=== PATIENT | female | born 1970 | race Caucasian/White ===

== ENCOUNTER 2016-06-16 11:28 | Emergency (ER) | payer MEDICAID ==
--- NOTE | 2016-06-16 12:15 | ERPHSYRPT ---
- History of Present Illness Time Seen by Provider: 06/16/16 12:08 Source: patient, family (brother) Patient Subjective Stated Complaint: pt states her shoe parts caser instructed her to come to ER for [facility] Evaluation. pt states she is hearing voices to kill people. Denies wanting to hurt herself. Pt states she hears these voices a few days before her invega injection is due. Triage Nursing Assessment: pt pink, warm, dry. alert and oriented x3. arrived to ER with her Brother. Physician History: CC: hearing voices hx: 46 y/o patient with schizophrenia. She sees Dr Estrada at . She is on long acting invega shots. Due for shot next week. She has been hearing more voices and now voices are telling her to kill someone. She has no act of self harm. shoe parts caser told the brother to bring her to ER for evaluation. Accidentally took an extra dose of ambien at 4AM. Severity of Symptoms-Max: moderate Severity of Symptoms-Current: moderate Allergies/Adverse Reactions: Penicillins Allergy (Mild, Verified 06/16/16 12:10) Hives Home Medications: Albuterol 2.5 mg/3 ml Neb [Proventil 2.5 mg/3 ml Neb] 2.5 mg IH QIDPRN PRN 04/23/12 [History] Albuterol Sulfate [Proair Hfa] 8.5 gm IH DAILY 04/23/12 [History] Fluticasone/Salmeterol [Advair 250-50 Diskus] 1 each IH DAILY 04/23/12 [History] Ibuprofen 400 mg [Motrin 400 mg] 600 mg PO TIDPRN 04/23/12 [History] Montelukast Sodium 10 mg [Singulair 10 MG] 10 mg PO HS 04/23/12 [History] Topiramate 100 mg [Topamax 100 MG] 200 mg PO BID 04/23/12 [History] Atorvastatin Calcium [Lipitor 20MG Tablet] 20 mg PO HS 06/16/16 [History] Benztropine Mesylate [Cogentin] 1 mg PO DAILY 06/16/16 [History] Benztropine Mesylate [Cogentin] 2 mg PO HS 06/16/16 [History] Buspirone HCl [Buspar] 10 mg PO BID 06/16/16 [History] Losartan Potassium 25 mg PO DAILY 06/16/16 [History] Metformin HCl [Metformin HCl ER] 1,000 mg PO DAILY 06/16/16 [History] Paliperidone Palmitate [Invega Sustenna] 156 mg IM UD 06/16/16 [History] Trazodone HCl [Desyrel] 150 mg PO HS 06/16/16 [History] Hx Tetanus, Diphtheria Vaccination/Date Given: Yes (up to date) Hx Influenza Vaccination/Date Given: Yes Hx Pneumococcal Vaccination/Date Given: Yes Immunizations Up to Date: Yes - Past Medical History Pertinent Past Medical History: Yes Neurological History: Seizures ENT History: No Pertinent History Cardiac History: High Cholesterol, Hypertension Respiratory History: Asthma Endocrine Medical History: Diabetes Type II Musculoskeletal History: Other GI Medical History: Gallbladder Disease History: No Pertinent History Psycho-Social History: Anxiety, Attention Deficit Disorder, Bipolar, Depression , Panic Disorder Female Reproductive Disorders: No Pertinent History Other Medical History: TYPE II NIDDM, L CTS W/ SURGERY - Past Surgical History Past Surgical History: Yes Neuro Surgical History: No Pertinent History Cardiac: No Pertinent History Respiratory: No Pertinent History Gastrointestinal: Cholecystectomy Genitourinary: No Pertinent History Musculoskeletal: Orthopedic Surgery Female Surgical History: No Pertinent History Other Surgical History: lap ivonne 2005,benign bone lesion right leg removed - Social History Smoking Status: Never smoker Exposure to second hand smoke: No Drug Use: none Patient Lives Alone: No - Review of Systems Constitutional: No Fever, No Chills Eyes: No Vision Changes Ears, Nose, & Throat: No Symptoms Respiratory: No Symptoms Cardiac: No Symptoms Abdominal/Gastrointestinal: No Abdominal Pain, No Nausea, No Vomiting Genitourinary Symptoms: No Symptoms Musculoskeletal: No Back Pain, No Neck Pain Psychological: Homicidal Ideations, Emotional Lability, Hallucinations All Other Systems: Reviewed and Negative - Nursing Vital Signs Nursing Vital Signs: Initial Vital Signs Temperature 97.4 F Temperature Source Oral Pulse Rate 74 Respiratory Rate 18 Blood Pressure [Right Arm] 135/84 Pain Intensity 0 - Physical Exam General Appearance: alert, obese Eyes, Ears, Nose, Throat Exam: moist mucous membranes Neck Exam: normal inspection, non-tender, supple Respiratory Exam: normal breath sounds, lungs clear Cardiovascular Exam: regular rate/rhythm, No murmur Gastrointestinal/Abdominal Exam: soft, No tenderness, No distention Neurological Exam: alert, calm Behavior/Eye Contact/Speech: alert & cooperative Skin Exam: warm, dry, No rash - Course Nursing assessment & vital signs reviewed: Yes Ordered Tests: Active Orders 24 hr Category Date Time Status Clean Catch Urine Specimen STAT Care 06/16/16 12:11 Active Psychiatric Evaluation STAT Care 06/16/16 12:11 Active CBC W DIFF Stat Lab 06/16/16 12:21 Completed CMP Stat Lab 06/16/16 12:21 Completed Ethyl Alcohol,Urine Stat Lab 06/16/16 12:10 Completed HCG,QUALITATIVE URINE Stat Lab 06/16/16 12:10 Completed UA W/ MICROSCOPIC Stat Lab 06/16/16 12:11 Completed Urine Triage Profile Stat Lab 06/16/16 12:10 Completed Medication Summary Discontinued Medications Generic Name Dose Route Start Last Admin Trade Name Mike PRN Reason Stop Dose Admin Lorazepam 1 mg 06/16/16 15:19 06/16/16 15:25 Ativan 2 Mg/1 Ml Vial SL 06/16/16 15:20 1 mg STAT ONE Administration Lorazepam Confirm 06/16/16 15:24 Ativan 2 Mg/1 Ml Vial Administered 06/16/16 15:25 Dose 2 mg .ROUTE .STK-MED ONE Lab/Rad Data: Laboratory Result Diagrams 06/16/16 12:21 06/16/16 12:21 Laboratory Results 06/16/16 06/16/16 06/16/16 Range/Units 12:21 12:21 12:11 WBC 8.0 (4.0-10.5) K/mm3 RBC 4.52 (4.1-5.4) M/mm3 Hgb 13.8 (12.0-16.0) gm/dl Hct 41.0 (35-47) % MCV 90.7 (78-100) fl MCH 30.5 (26-32) pg MCHC 33.7 (32-36) g/dl RDW 12.8 (11.5-14.0) % Plt Count 164 (150-450) K/mm3 MPV 10.1 H (6-9.5) fl Gran % 70.4 H (36.0-66.0) % Lymphocytes % 15.5 L (24.0-44.0) % Monocytes % 11.6 (0.0-12.0) % Eosinophils % 2.1 (0.00-5.0) % Basophils % 0.4 (0.0-0.4) % Basophils # 0.03 (0-0.4) Sodium 140 (136-145) mEq/L Potassium 3.9 (3.5-5.1) mEq/L Chloride 107 (98-107) mEq/L Carbon Dioxide 23.9 (21-32) mEq/L Anion Gap 13.4 (5-15) MEQ/L BUN 17 (9-20) mg/dL Creatinine 1.03 (0.55-1.30) mg/dl Estimated GFR > 60 ML/MIN Glucose 79 (70-110) MG/DL Calcium 8.9 (8.5-10.1) mg/dL Total Bilirubin 0.2 (0.2-1.0) mg/dL AST 18 (15-37) U/L ALT 22 (12-78) U/L Alkaline Phosphatase 95 (46-116) U/L Serum Total Protein 7.4 (6.4-8.2) gm/dL Albumin 3.7 (3.4-5.0) g/dL Ur Collection Type VOID Urine Color YELLOW (YELLOW) Urine Appearance CLEAR (CLEAR) Ur Specific Pierre 1.010 (1.005-1.025) Urine Protein NEGATIVE (Negative) Urine Glucose (UA) NEGATIVE (NEGATIVE) mg/dL Urine Ketones NEGATIVE (NEGATIVE) Urine Nitrite NEGATIVE (NEGATIVE) Urine Bilirubin NEGATIVE (NEGATIVE) Urine Urobilinogen 0.2 (0-1) mg/dL Urine WBC (Auto) TRACE (NEGATIVE) Urine RBC (Auto) NEGATIVE (0-5) Wild/ul Urine Microscopic WBC 0-2 (0-5) /HPF Urine Bacteria RARE (NEGATIVE) /HPF Urine HCG, Qual (Negative) Urine Opiates Level (NEGATIVE) Ur Methadone (NEGATIVE) Urine Barbiturates (NEGATIVE) Ur Phencyclidine (PCP) (NEGATIVE) Urine Amphetamine (NEGATIVE) U Benzodiazepine Level (NEGATIVE) Urine Cocaine (NEGATIVE) Urine Marijuana (THC) (NEGATIVE) Urine pH 7.0 (3-8.5) Urine Ethyl Alcohol (0.00-20) mg/dl Specimen Received 06/16/16 1210 06/16/16 06/16/16 06/16/16 Range/Units 12:10 12:10 12:10 WBC (4.0-10.5) K/mm3 RBC (4.1-5.4) M/mm3 Hgb (12.0-16.0) gm/dl Hct (35-47) % MCV (78-100) fl MCH (26-32) pg MCHC (32-36) g/dl RDW (11.5-14.0) % Plt Count (150-450) K/mm3 MPV (6-9.5) fl Gran % (36.0-66.0) % Lymphocytes % (24.0-44.0) % Monocytes % (0.0-12.0) % Eosinophils % (0.00-5.0) % Basophils % (0.0-0.4) % Basophils # (0-0.4) Sodium (136-145) mEq/L Potassium (3.5-5.1) mEq/L Chloride (98-107) mEq/L Carbon Dioxide (21-32) mEq/L Anion Gap (5-15) MEQ/L BUN (9-20) mg/dL Creatinine (0.55-1.30) mg/dl Estimated GFR ML/MIN Glucose (70-110) MG/DL Calcium (8.5-10.1) mg/dL Total Bilirubin (0.2-1.0) mg/dL AST (15-37) U/L ALT (12-78) U/L Alkaline Phosphatase (46-116) U/L Serum Total Protein (6.4-8.2) gm/dL Albumin (3.4-5.0) g/dL Ur Collection Type Urine Color (YELLOW) Urine Appearance (CLEAR) Ur Specific Pierre (1.005-1.025) Urine Protein (Negative) Urine Glucose (UA) (NEGATIVE) mg/dL Urine Ketones (NEGATIVE) Urine Nitrite (NEGATIVE) Urine Bilirubin (NEGATIVE) Urine Urobilinogen (0-1) mg/dL Urine WBC (Auto) (NEGATIVE) Urine RBC (Auto) (0-5) Wild/ul Urine Microscopic WBC (0-5) /HPF Urine Bacteria (NEGATIVE) /HPF Urine HCG, Qual NEGATIVE (Negative) Urine Opiates Level NEG. (NEGATIVE) Ur Methadone NEG. (NEGATIVE) Urine Barbiturates NEG. (NEGATIVE) Ur Phencyclidine (PCP) NEG. (NEGATIVE) Urine Amphetamine NEG. (NEGATIVE) U Benzodiazepine Level NEG. (NEGATIVE) Urine Cocaine NEG. (NEGATIVE) Urine Marijuana (THC) NEG. (NEGATIVE) Urine pH 7.0 (3-8.5) Urine Ethyl Alcohol 1 (0.00-20) mg/dl Specimen Received - Progress Progress Note: 06/16/16 12:14 Will obtain telemental health consult. 06/16/16 15:28 [facility] evaluation. Safe to return home with brother's supervision, he is to control medications, and follow up next week. Counseled pt/family regarding: lab results, diagnosis, need for follow-up - Departure Time of Disposition: 15:28 Departure Disposition: Home Clinical Impression: Psychosis Qualifiers: Psychosis type: schizoaffective disorder Schizoaffective disorder type: unspecified Qualified Code(s): F25.9 - Schizoaffective disorder, unspecified Condition: Stable Critical Care Time: No Referrals: SANDHYA CRANDALL [Primary Care Provider] - [facility] [Provider Group] Instructions: Schizophrenia Additional Instructions: OK to return home with brother. Brother needs to lock up medications and dispense them as prescribed. Call [facility] or return for problems or concerns.
[2016-06-16 12:23] LABS: BASOPHIL % 0.4 % (0.0-0.4); Eosinophil % 2.1 % (0.00-5.0); Granulocytes % 70.4 % (36.0-66.0); Lymphocytes % 15.5 % (24.0-44.0); Mean Cell Volume 90.7 fl (78-100); Mean Corpuscular Hemoglobin 30.5 pg (26-32); Mean Platelet Volume 10.1 fl (6-9.5); Monocytes % 11.6 % (0.0-12.0); Platelet Count 164 K/mm3 (150-450); Red Blood Count 4.52 M/mm3 (4.1-5.4); Red Cell Distribution Width 12.8 % (11.5-14.0)
[2016-06-16 12:23] LABS: COMPLETE URINE MICROSCOPIC? YES; Collection Type VOID
[2016-06-16 12:29] LABS: Bacteria RARE /HPF (NEGATIVE); WBC 0-2 /HPF (0-5)
[2016-06-16 12:42] LABS: ALBUMIN 3.7 g/dL (3.4-5.0); ALKALINE PHOSPHATASE 95 U/L (46-116); ANION GAP 13.4 MEQ/L (5-15); BILIRUBIN,TOTAL 0.2 mg/dL (0.2-1.0); BLOOD UREA NITROGEN 17 mg/dL (9-20); CHLORIDE 107 mEq/L (98-107); Carbon Dioxide 23.9 mEq/L (21-32); Glucose 79 MG/DL (70-110); Potassium 3.9 mEq/L (3.5-5.1); SGOT/AST 18 U/L (15-37); SGPT/ALT 22 U/L (12-78); SODIUM 140 mEq/L (136-145); Total Protein 7.4 gm/dL (6.4-8.2)
[2016-06-16] MEDS ORDERED: Ativan 2 MG/1 ML VIAL SL ONE (15:19)
[2016-06-16] MEDS ORDERED: Ativan 2 MG/1 ML VIAL ONE (15:24)
[2016-06-16 15:37] VITALS: BP 136/84; PULSE 76
== END 2016-06-16 15:35 | disposition home or self-care (01) ==
LOC: ED 11:28
DX: F25.9 Schizoaffective disorder, unspecified (principal); I10 Essential (primary) hypertension; E11.9 Type 2 diabetes mellitus without complications; E78.00 Pure hypercholesterolemia, unspecified; Z79.899 Other long term (current) drug therapy
CPT/HCPCS: 36415; 80053; 80307; 80320; 81000; 83986; 84703; 85025; 90791; 99283; 99285; J2060; Q3014

== ENCOUNTER 2021-04-21 20:04 | Emergency (ER) | payer MEDICAID ==
--- NOTE | 2021-04-21 20:09 | ERPHSYRPT ---
- History of Present Illness Time Seen by Provider: 04/21/21 20:09 Source: patient, EMS Exam Limitations: no limitations Physician History: This is an obese 50-year-old white female who has a history of anxiety, schizophrenia, bipolar disorder who presents via ambulance to the emergency department with delusional thoughts and auditory hallucinations. Patient denies being suicidal or homicidal. She does states she is taking her medications. Patient was seen at [facility] earlier in the day. They called the emergency department and told us that she has been given an emergency fci and has a bed reserved for her at [facility]. We were told by [facility] that she is to come here and be cleared medically. Patient has history of COPD, diabetes, hypertension. Patient has no medical complaints. Timing/Duration: today Severity of Symptoms-Max: moderate Severity of Symptoms-Current: moderate Suicidal thoughts: other (None) Associated Symptoms: hallucinating (Auditory), other (Delusional thoughts) Previous symptoms: same symptoms as today Allergies/Adverse Reactions: Penicillins Allergy (Mild, Verified 04/21/21 20:30) Hives Home Medications: Albuterol 2.5 mg/3 ml Neb [Proventil 2.5 mg/3 ml Neb] 2.5 mg IH QIDPRN PRN 04/23/12 [History] Albuterol Sulfate [Proair Hfa] 8.5 gm IH Q4-6HPRN PRN 04/23/12 [History] Montelukast Sodium 10 mg [Singulair 10 MG] 10 mg PO HS 04/23/12 [History] Atorvastatin Calcium [Lipitor 20MG Tablet] 40 mg PO HS 06/16/16 [History] Benztropine Mesylate [Cogentin] 1 mg PO BID 06/16/16 [History] Losartan Potassium 12.5 mg PO DAILY 06/16/16 [History] Trazodone HCl [Desyrel] 100 mg PO HS 06/16/16 [History] Cetirizine HCl [All Day Allergy Relief] 10 mg PO DAILY 04/21/21 [History] Fluoxetine HCl 20 mg [Prozac 20 MG] 20 mg PO DAILY 04/21/21 [History] Lacosamide [Vimpat] 200 mg PO BID 04/21/21 [History] Lorazepam 1 mg [Ativan 1 MG] 0.5 mg PO DAILY 04/21/21 [History] Lorazepam 1 mg [Ativan 1 MG] 1 mg PO HS 04/21/21 [History] Paliperidone Palmitate [Invega Sustenna] 234 mg IM UD 04/21/21 [History] Propranolol HCl 20 mg PO BID 04/21/21 [History] Trazodone HCl 300 mg PO HS 04/21/21 [History] haloperidoL [Haloperidol] 2 mg PO BID 04/21/21 [History] Hx Tetanus, Diphtheria Vaccination/Date Given: Yes (up to date) Hx Influenza Vaccination/Date Given: Yes Hx Pneumococcal Vaccination/Date Given: Yes Travel Risk - International Travel Have you traveled outside of the country in past 3 weeks: No - Coronavirus Screening Are you exhibiting any of the following symptoms?: No Close contact with a COVID-19 positive Pt in past 14-21 Days: No - Past Medical History Pertinent Past Medical History: Yes Neurological History: Seizures ENT History: No Pertinent History Cardiac History: High Cholesterol, Hypertension Respiratory History: Asthma Endocrine Medical History: Diabetes Type II Musculoskeletal History: Other GI Medical History: Gallbladder Disease History: No Pertinent History Psycho-Social History: Anxiety, Attention Deficit Disorder, Bipolar, Depression, Panic Disorder Female Reproductive Disorders: No Pertinent History Other Medical History: TYPE II NIDDM, L CTS W/ SURGERY - Past Surgical History Past Surgical History: Yes Neuro Surgical History: No Pertinent History Cardiac: No Pertinent History Respiratory: No Pertinent History Gastrointestinal: Cholecystectomy Genitourinary: No Pertinent History Musculoskeletal: Orthopedic Surgery Female Surgical History: No Pertinent History Other Surgical History: lap ivonne 2005,benign bone lesion right leg removed - Social History Smoking Status: Never smoker Exposure to second hand smoke: No Drug Use: none Patient Lives Alone: No - Review of Systems Constitutional: No Symptoms Eyes: No Symptoms Ears, Nose, & Throat: No Symptoms Respiratory: No Symptoms Cardiac: No Symptoms Abdominal/Gastrointestinal: No Symptoms Genitourinary Symptoms: No Symptoms Musculoskeletal: No Symptoms Skin: Other (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 Patient states that he hears voices telling her what to do like change the channel on the TV and go to places) Endocrine: No Symptoms Hematologic/Lymphatic: No Symptoms Immunological/Allergic: Pollen Allergy All Other Systems: Reviewed and Negative - Nursing Vital Signs Nursing Vital Signs: Initial Vital Signs Temperature 97.2 F 04/21/21 20:05 Pulse Rate 85 04/21/21 20:05 Respiratory Rate 18 04/21/21 20:05 Blood Pressure 107/89 04/21/21 20:05 O2 Sat by Pulse Oximetry 95 04/21/21 20:05 Pain Scale Pain Intensity 0 - Physical Exam General Appearance: no apparent distress, alert, anxiety, obese Eyes, Ears, Nose, Throat Exam: normal ENT inspection, moist mucous membranes Neck Exam: normal inspection, non-tender, supple, full range of motion Respiratory Exam: normal breath sounds, lungs clear, airway intact, No chest tenderness, No respiratory distress Cardiovascular Exam: regular rate/rhythm, normal heart sounds, normal peripheral pulses Gastrointestinal/Abdominal Exam: soft, normal bowel sounds, No tenderness Extremities Exam: normal inspection, normal range of motion, No evidence of inj ury Neurological Exam: alert, normal mood/affect, calm, forensic materials engineer II-XII nml as tested, oriented x 3 Appearance: impaired insight Behavior/Eye Contact/Speech: alert & cooperative, good eye contact, normal speech Thoughts/Hallucinations: auditory hallucinations, delusions Skin Exam: normal color, warm, dry SpO2 Interpretation: normal O2 Delivery: Room Air Ordered Tests: Active Orders 24 hr Category Date Time Status EKG-ER Only STAT Care 04/21/21 20:10 Active ACETAMINOPHEN Stat Lab 04/21/21 20:31 Completed CBC W DIFF Stat Lab 04/21/21 20:31 Completed CMP Stat Lab 04/21/21 20:31 Completed ETHYL ALCOHOL Stat Lab 04/21/21 20:31 Completed SALICYLATE Stat Lab 04/21/21 20:31 Completed UA W/RFX UR CULTURE Stat Lab 04/21/21 20:31 Completed Urine Triage Profile Stat Lab 04/21/21 20:31 Completed Lab/Rad Data: Laboratory Result Diagrams 04/21/21 20:31 04/21/21 20:31 Laboratory Results 04/21/21 04/21/21 04/21/21 Range/Units 20:31 20:31 20:31 WBC 10.6 H (4.0-10.5) K/mm3 RBC 4.64 (4.1-5.4) M/mm3 Hgb 14.1 (12.0-16.0) gm/dl Hct 43.6 (35-47) % MCV 94.0 (78-100) fl MCH 30.4 (26-32) pg MCHC 32.3 (32-36) g/dl RDW 12.2 (11.5-14.0) % Plt Count 193 (150-450) K/mm3 MPV 10.4 (7.5-11.0) fl Gran % 64.9 (36.0-66.0) % Eos # (Auto) 0.18 (0-0.5) Absolute Lymphs (auto) 2.56 (1.0-4.6) Absolute Monos (auto) 0.92 (0.0-1.3) Lymphocytes % 24.2 (24.0-44.0) % Monocytes % 8.7 (0.0-12.0) % Eosinophils % 1.7 (0.00-5.0) % Basophils % 0.5 (0.0-0.4) % Absolute Granulocytes 6.87 (1.4-6.9) Basophils # 0.05 (0-0.4) Sodium 136 L (137-145) mmol/L Potassium 4.4 (3.5-5.1) mmol/L Chloride 101 (98-107) mmol/L Carbon Dioxide 28 (22-30) mmol/L Anion Gap 12.0 (5-15) MEQ/L BUN 14 (7-17) mg/dL Creatinine 1.04 (0.52-1.04) mg/dL Estimated GFR > 60.0 ML/MIN Glucose 124 H (74-106) mg/dL Calcium 9.3 (8.4-10.2) mg/dL Total Bilirubin 0.30 (0.2-1.3) mg/dL AST 19 (14-36) U/L ALT 18 (0-35) U/L Alkaline Phosphatase 68 (38-126) U/L Serum Total Protein 6.8 (6.3-8.2) g/dL Albumin 4.2 (3.5-5.0) g/dL Urine Color (YELLOW) Urine Appearance (CLEAR) Urine pH (5-6) Ur Specific Colby (1.005-1.025) Urine Protein (Negative) Urine Ketones (NEGATIVE) Urine Blood (0-5) Wild/ul Urine Nitrite (NEGATIVE) Urine Bilirubin (NEGATIVE) Urine Urobilinogen (0-1) mg/dL Ur Leukocyte Esterase (NEGATIVE) Urine WBC (Auto) (0-5) /HPF Urine RBC (Auto) (0-2) /HPF U Epithel Cells (Auto) (FEW) /HPF Urine Bacteria (Auto) (NEGATIVE) /HPF Urine Mucus (Auto) (NEGATIVE) /HPF Urine Culture Reflexed (NO) Urine Glucose (NEGATIVE) mg/dL Salicylates < 1.0 L (2-20) mg/dL Urine Opiates Level NEGATIVE (NEGATIVE) Ur Methadone NEGATIVE (NEGATIVE) Acetaminophen < 10 L (10-30) ug/ml Urine Barbiturates NEGATIVE (NEGATIVE) Ur Phencyclidine (PCP) NEGATIVE (NEGATIVE) Urine Amphetamine NEGATIVE (NEGATIVE) U Benzodiazepine Level NEGATIVE (NEGATIVE) Urine Cocaine NEGATIVE (NEGATIVE) Urine Marijuana (THC) NEGATIVE (NEGATIVE) Ethyl Alcohol < 10 (0-10) mg/dL 04/21/21 Range/Units 20:31 WBC (4.0-10.5) K/mm3 RBC (4.1-5.4) M/mm3 Hgb (12.0-16.0) gm/dl Hct (35-47) % MCV (78-100) fl MCH (26-32) pg MCHC (32-36) g/dl RDW (11.5-14.0) % Plt Count (150-450) K/mm3 MPV (7.5-11.0) fl Gran % (36.0-66.0) % Eos # (Auto) (0-0.5) Absolute Lymphs (auto) (1.0-4.6) Absolute Monos (auto) (0.0-1.3) Lymphocytes % (24.0-44.0) % Monocytes % (0.0-12.0) % Eosinophils % (0.00-5.0) % Basophils % (0.0-0.4) % Absolute Granulocytes (1.4-6.9) Basophils # (0-0.4) Sodium (137-145) mmol/L Potassium (3.5-5.1) mmol/L Chloride (98-107) mmol/L Carbon Dioxide (22-30) mmol/L Anion Gap (5-15) MEQ/L BUN (7-17) mg/dL Creatinine (0.52-1.04) mg/dL Estimated GFR ML/MIN Glucose (74-106) mg/dL Calcium (8.4-10.2) mg/dL Total Bilirubin (0.2-1.3) mg/dL AST (14-36) U/L ALT (0-35) U/L Alkaline Phosphatase (38-126) U/L Serum Total Protein (6.3-8.2) g/dL Albumin (3.5-5.0) g/dL Urine Color YELLOW (YELLOW) Urine Appearance CLEAR (CLEAR) Urine pH 7.0 (5-6) Ur Specific Colby 1.010 (1.005-1.025) Urine Protein NEGATIVE (Negative) Urine Ketones NEGATIVE (NEGATIVE) Urine Blood NEGATIVE (0-5) Wild/ul Urine Nitrite NEGATIVE (NEGATIVE) Urine Bilirubin NEGATIVE (NEGATIVE) Urine Urobilinogen NEGATIVE (0-1) mg/dL Ur Leukocyte Esterase TRACE (NEGATIVE) Urine WBC (Auto) 3-5 (0-5) /HPF Urine RBC (Auto) NONE (0-2) /HPF U Epithel Cells (Auto) NONE (FEW) /HPF Urine Bacteria (Auto) NONE (NEGATIVE) /HPF Urine Mucus (Auto) SLIGHT (NEGATIVE) /HPF Urine Culture Reflexed NO (NO) Urine Glucose NEGATIVE (NEGATIVE) mg/dL Salicylates (2-20) mg/dL Urine Opiates Level (NEGATIVE) Ur Methadone (NEGATIVE) Acetaminophen (10-30) ug/ml Urine Barbiturates (NEGATIVE) Ur Phencyclidine (PCP) (NEGATIVE) Urine Amphetamine (NEGATIVE) U Benzodiazepine Level (NEGATIVE) Urine Cocaine (NEGATIVE) Urine Marijuana (THC) (NEGATIVE) Ethyl Alcohol (0-10) mg/dL - Progress Progress Note: 04/21/21 22:03 Patient has been accepted by Dr. Queen for transfer to [facility]. We are awaiting the Covid 19 test results. - Departure Departure Disposition: Transfer Clinical Impression: Delusion, Auditory hallucinations Condition: Stable Critical Care Time: No Referrals: CHANA FLORES, [Primary Care Provider] - Follow up/PCP as directed
[2021-04-21 20:47] LABS: Absolute Neutrophil Ct (ANC) 6.87 (1.4-6.9); BASOPHIL % 0.5 % (0.0-0.4); Basophil (Absolute #) 0.05 (0-0.4); Eosinophil % 1.7 % (0.00-5.0); Eosinophil (Absolute #) 0.18 (0-0.5); Hematocrit 43.6 % (35-47); Hemoglobin 14.1 gm/dl (12.0-16.0); Lymphocyte (Absolute #) 2.56 (1.0-4.6); Lymphocytes % 24.2 % (24.0-44.0); Mean Corpuscular Hemoglobin 30.4 pg (26-32); Mean Corpuscular Hgb Concent. 32.3 g/dl (32-36); Mean Platelet Volume 10.4 fl (7.5-11.0); Monocyte (Absolute #) 0.92 (0.0-1.3); Monocytes % 8.7 % (0.0-12.0); Neutrophil % 64.9 % (36.0-66.0); Platelet Count 193 K/mm3 (150-450); Red Blood Count 4.64 M/mm3 (4.1-5.4); Red Cell Distribution Width 12.2 % (11.5-14.0); White Blood Count 10.6 K/mm3 (4.0-10.5)
[2021-04-21 20:48] LABS: Appearance CLEAR (CLEAR); Bilirubin NEGATIVE (NEGATIVE); Blood NEGATIVE Ery/ul (0-5); Glucose NEGATIVE (NEGATIVE); Ketones NEGATIVE (NEGATIVE); Leukocyte Esterase TRACE (NEGATIVE); Mucus SLIGHT /HPF (NEGATIVE); Nitrite NEGATIVE (NEGATIVE); Protein,Urine Dip NEGATIVE (Negative); Urobilinogen NEGATIVE mg/dL (0-1)
[2021-04-21 20:53] LABS: ACETAMINOPHEN < 10 ug/ml (10-30); ALBUMIN 4.2 g/dL (3.5-5.0); ALKALINE PHOSPHATASE 68 U/L (38-126); BLOOD UREA NITROGEN 14 mg/dL (7-17); CHLORIDE 101 mmol/L (98-107); Calcium 9.3 mg/dL (8.4-10.2); Carbon Dioxide 28 mmol/L (22-30); Creatinine 1 1.04 mg/dL (0.52-1.04); EST GLOMERULAR FILTRATION RATE > 60.0 ML/MIN; ETHYL ALCOHOL < 10 mg/dL (0-10); Glucose 124 mg/dL (74-106); Potassium 4.4 mmol/L (3.5-5.1); SALICYLATE < 1.0 mg/dL (2-20); SGOT/AST 19 U/L (14-36); SGPT/ALT 18 U/L (0-35); SODIUM 136 mmol/L (137-145); Total Protein 6.8 g/dL (6.3-8.2)
[2021-04-21 21:01] LABS: Amphetamine,Urine NEGATIVE (NEGATIVE); Barbiturate,Urine NEGATIVE (NEGATIVE); Benzodiazepine,Urine NEGATIVE (NEGATIVE); Cocaine,Urine NEGATIVE (NEGATIVE); Methadone,Urine NEGATIVE (NEGATIVE); Opiate,Urine NEGATIVE (NEGATIVE); PCP,Urine NEGATIVE (NEGATIVE); THC,Urine NEGATIVE (NEGATIVE)
[2021-04-21 22:11] LABS: COVID AG -BINAX NOW RAPID TEST NEGATIVE (NEGATIVE)
[2021-04-21 23:02] VITALS: BP 114/76; PULSE 84; O2SAT 98
== END 2021-04-21 23:00 | disposition short-term general hospital (02) ==
LOC: ED 20:04
DX: R44.0 Auditory hallucinations (principal); F22 Delusional disorders; F41.0 Panic disorder [episodic paroxysmal anxiety]; F31.9 Bipolar disorder, unspecified; E78.5 Hyperlipidemia, unspecified; I10 Essential (primary) hypertension; E11.8 Type 2 diabetes mellitus with unspecified complications
CPT/HCPCS: 36415; 80053; 80307; 81001; 85025; 93005; 99000; 99285; 99291; G0480

== ENCOUNTER 2021-12-21 17:52 | Emergency (ER) | payer MEDICAID ==
[2021-12-21] MEDS ORDERED: MOTRIN 600 MG PO ONE (18:32)
[2021-12-21] MEDS ORDERED: MOTRIN 600 MG ONE (18:33)
[2021-12-21 18:34] LABS: ACETAMINOPHEN < 10 ug/ml (10-30); ALBUMIN 4.5 g/dL (3.5-5.0); ALKALINE PHOSPHATASE 102 U/L (38-126); ANION GAP 13.6 MEQ/L (5-15); BLOOD UREA NITROGEN 16 mg/dL (7-17); CHLORIDE 99 mmol/L (98-107); Calcium 9.5 mg/dL (8.4-10.2); Carbon Dioxide 25 mmol/L (22-30); Creatinine 1 0.99 mg/dL (0.52-1.04); EST GLOMERULAR FILTRATION RATE > 60.0 ML/MIN; ETHYL ALCOHOL < 10 mg/dL (0-10); Glucose 126 mg/dL (74-106); Potassium 3.8 mmol/L (3.5-5.1); SALICYLATE < 1.0 mg/dL (2-20); SGOT/AST 26 U/L (14-36); SGPT/ALT 23 U/L (0-35); SODIUM 134 mmol/L (137-145); Total Protein 7.5 g/dL (6.3-8.2)
[2021-12-21 18:38] LABS: Absolute Neutrophil Ct (ANC) 5.83 x10^3/uL (1.4-6.9); Basophil (Absolute #) 0.06 x10^3/uL (0-0.4); Eosinophil % 2.1 % (0.00-5.0); Eosinophil (Absolute #) 0.18 x10^3/uL (0-0.5); Hematocrit 41.7 % (35-47); Hemoglobin 14.4 g/dL (12.0-16.0); Lymphocyte (Absolute #) 1.79 x10^3/uL (1.0-4.6); Mean Cell Volume 90.7 fL (78-100); Mean Corpuscular Hemoglobin 31.3 pg (26-32); Mean Corpuscular Hgb Concent. 34.5 g/dL (32-36); Mean Platelet Volume 9.7 fL (7.5-11.0); Monocyte (Absolute #) 0.62 x10^3/uL (0.0-1.3); Monocytes % 7.3 % (0.0-12.0); Neutrophil % 68.4 % (36.0-66.0); Platelet Count 214 x10^3/uL (150-450); Red Cell Distribution Width 11.5 % (11.5-14.0); White Blood Count 8.5 x10^3/uL (4.0-10.5)
[2021-12-21 18:41] LABS: Appearance CLEAR (CLEAR); Bilirubin NEGATIVE (NEGATIVE); Glucose NEGATIVE (NEGATIVE); Ketones NEGATIVE (NEGATIVE); Protein,Urine Dip NEGATIVE (Negative); RBC NEGATIVE Ery/ul (0-5); Specific Gravity <=1.005 (1.005-1.025); Urobilinogen 0.2 mg/dL (0-1)
[2021-12-21 18:42] LABS: Dipstick done @ ? MAIN LAB; Nitrite NEGATIVE (NEGATIVE)
[2021-12-21 18:52] LABS: Urine Cultured Indicated? NO
[2021-12-21 19:05] LABS: INFLUENZA A NEGATIVE (NEGATIVE); INFLUENZA B NEGATIVE (NEGATIVE); RESPIRATORY SYNCTIAL VIRUS NEGATIVE (Negative); SARS-CoV-2 Xpert Express NEGATIVE (NEGATIVE)
--- NOTE | 2021-12-21 19:16 | ERPHSYRPT ---
- History of Present Illness Time Seen by Provider: 12/21/21 17:55 Source: patient, police Exam Limitations: clinical condition Patient Subjective Stated Complaint: Behavioral Problems Triage Nursing Assessment: Patient ambulated into ED per self [facility] [place] [facility] Aravind. Patient currently on ED from [facility]. Patient denies pain or discomfort. [facility] requesting patient to be medically cleared with as follows: UA, Triage, CMP, CBC, Vitals, HCG, RAH, and COVID. Fax results to [facility] at [phone]. Patient already has a bed, just needs medically cleared. Patient denies suicidal or homicidal idea tion. Physician History: 51-year-old is brought in the ER by PD at request of [facility] therapist who requested and patient is placed on ED hold. Patient is sent in here for medical clearance. Apparently patient is having visual and auditory hallucination and some paranoid thoughts which therapist thought patient does not safe to stay alone as she could be a threat to self or someone else. Patient though denies any suicidal or homicidal ideations. Patient was watching TV when PT got her. She denies any drug use. Not in any distress. Timing/Duration: gradual onset, worse Severity of Symptoms-Max: moderate Severity of Symptoms-Current: moderate Associated Symptoms: hallucinating, impaired concentration, paranoid Allergies/Adverse Reactions: Penicillins Allergy (Mild, Verified 12/21/21 17:55) Hives Home Medications: Albuterol 2.5 mg/3 ml Neb [Proventil 2.5 mg/3 ml Neb] 2.5 mg IH QIDPRN PRN 04/23/12 [History] Albuterol Sulfate [Proair Hfa] 8.5 gm IH Q4-6HPRN PRN 04/23/12 [History] Montelukast Sodium 10 mg [Singulair 10 MG] 10 mg PO HS 04/23/12 [History] Atorvastatin Calcium [Lipitor 20MG Tablet] 40 mg PO HS 06/16/16 [History] Benztropine Mesylate [Cogentin] 1 mg PO BID 06/16/16 [History] Losartan Potassium 12.5 mg PO DAILY 06/16/16 [History] Trazodone HCl [Desyrel] 100 mg PO HS 06/16/16 [History] Cetirizine HCl [All Day Allergy Relief] 10 mg PO DAILY 04/21/21 [History] Fluoxetine HCl 20 mg [Prozac 20 MG] 20 mg PO DAILY 04/21/21 [History] Lacosamide [Vimpat] 200 mg PO BID 04/21/21 [History] Lorazepam 1 mg [Ativan 1 MG] 0.5 mg PO DAILY 04/21/21 [History] Lorazepam 1 mg [Ativan 1 MG] 1 mg PO HS 04/21/21 [History] Paliperidone Palmitate [Invega Sustenna] 234 mg IM UD 04/21/21 [History] Propranolol HCl 20 mg PO BID 04/21/21 [History] Trazodone HCl 300 mg PO HS 04/21/21 [History] haloperidoL [Haloperidol] 2 mg PO BID 04/21/21 [History] Hx Tetanus, Diphtheria Vaccination/Date Given: Yes (up to date) Hx Influenza Vaccination/Date Given: Yes Hx Pneumococcal Vaccination/Date Given: Yes Immunizations Up to Date: Yes Travel Risk - International Travel Have you traveled outside of the country in past 3 weeks: No - Coronavirus Screening Are you exhibiting any of the following symptoms?: No Close contact with a COVID-19 positive Pt in past 14-21 Days: No - Vaccine Status Have you recieved a Covid-19 vaccination: Yes Development Lead: Moderna - Vaccination Dates Date of 2cond Vaccination (if applicable): august 2020 Comment: booster april 2021 - Past Medical History Pertinent Past Medical History: Yes Neurological History: Seizures ENT History: No Pertinent History Cardiac History: High Cholesterol, Hypertension Respiratory History: Asthma Endocrine Medical History: Diabetes Type II Musculoskeletal History: Other GI Medical History: Gallbladder Disease History: No Pertinent History Psycho-Social History: Anxiety, Attention Deficit Disorder, Bipolar, Depression, Panic Disorder Female Reproductive Disorders: No Pertinent History Other Medical History: L carpal tunnel syndrome - Past Surgical History Past Surgical History: Yes Neuro Surgical History: No Pertinent History Cardiac: No Pertinent History Respiratory: No Pertinent History Gastrointestinal: Cholecystectomy Genitourinary: No Pertinent History Musculoskeletal: Orthopedic Surgery Female Surgical History: No Pertinent History Other Surgical History: lap ivonne 2005,benign bone lesion right leg removed - Social History Smoking Status: Never smoker Exposure to second hand smoke: No Drug Use: none Patient Lives Alone: Yes - Female History Hx Last Menstrual Period: menopausal Hx Now: No - Review of Systems Constitutional: No Symptoms Eyes: No Symptoms Ears, Nose, & Throat: No Symptoms Respiratory: No Symptoms Cardiac: No Symptoms Abdominal/Gastrointestinal: No Symptoms Genitourinary Symptoms: No Symptoms Musculoskeletal: Back Pain Skin: No Symptoms Neurological: No Symptoms Psychological: Depression, Hallucinations Endocrine: No Symptoms Hematologic/Lymphatic: No Symptoms Immunological/Allergic: No Symptoms - Nursing Vital Signs Nursing Vital Signs: Initial Vital Signs Temperature 97.3 F 12/21/21 17:56 Pulse Rate 102 H 12/21/21 17:56 Respiratory Rate 18 12/21/21 17:56 Blood Pressure 111/92 12/21/21 17:56 O2 Sat by Pulse Oximetry 97 12/21/21 17:56 Pain Scale Pain Intensity 7 - Physical Exam General Appearance: no apparent distress, alert Eyes, Ears, Nose, Throat Exam: normal ENT inspection, pharynx normal Neck Exam: normal inspection, full range of motion Respiratory Exam: normal breath sounds, lungs clear Cardiovascular Exam: regular rate/rhythm, normal heart sounds Gastrointestinal/Abdominal Exam: soft, normal bowel sounds, No tenderness, No rebound Extremities Exam: normal inspection Current Suicidality: denies suicide plan Neurological Exam: alert, calm, target network analyst II-XII nml as tested, oriented x 3, No normal mood/affect Appearance: appropriate appearance, denies illness, No appropriate insight Behavior/Eye Contact/Speech: alert & cooperative, normal speech Thoughts/Hallucinations: no apparent hallucination, flight of ideas Skin Exam: normal color SpO2 Interpretation: normal SpO2: 97 O2 Delivery: Room Air Ordered Tests: Active Orders 24 hr Category Date Time Status ACETAMINOPHEN Stat Lab 12/21/21 18:20 Completed CBC W DIFF Stat Lab 12/21/21 18:20 Completed CMP Stat Lab 12/21/21 18:20 Completed ETHYL ALCOHOL Stat Lab 12/21/21 18:20 Completed HCG,QUALITATIVE URINE Stat Lab 12/21/21 17:58 Completed SALICYLATE Stat Lab 12/21/21 18:20 Completed UA W/RFX CULTURE Stat Lab 12/21/21 17:58 Completed Urine Triage Profile Stat Lab 12/21/21 17:58 Received Medication Summary Discontinued Medications Generic Name Dose Route Start Last Admin Trade Name Freq PRN Reason Stop Dose Admin Ibuprofen 600 mg 12/21/21 18:32 12/21/21 18:34 Ibuprofen 600 Mg Tablet PO 12/21/21 18:33 600 mg STAT ONE Administration Ibuprofen Confirm 12/21/21 18:33 Ibuprofen 600 Mg Tablet Administered 12/21/21 18:34 Dose 600 mg .ROUTE .STK-MED ONE Lab/Rad Data: Laboratory Result Diagrams 12/21/21 18:20 12/21/21 18:20 Laboratory Results 12/21/21 12/21/21 12/21/21 Range/Units 18:20 18:20 18:20 WBC 8.5 (4.0-10.5) x10^3/uL RBC 4.60 (4.1-5.4) x10^6/uL Hgb 14.4 (12.0-16.0) g/dL Hct 41.7 (35-47) % MCV 90.7 (78-100) fL MCH 31.3 (26-32) pg MCHC 34.5 (32-36) g/dL RDW 11.5 (11.5-14.0) % Plt Count 214 (150-450) x10^3/uL MPV 9.7 (7.5-11.0) fL Gran % 68.4 H (36.0-66.0) % Immature Gran % (Auto) 0.5 H (0.00-0.4) % Nucleat RBC Rel Count 0.0 (0.00-0.1) % Eos # (Auto) 0.18 (0-0.5) x10^3/uL Immature Gran # (Auto) 0.04 H (0.00-0.03) x10^3u/L Absolute Lymphs (auto) 1.79 (1.0-4.6) x10^3/uL Absolute Monos (auto) 0.62 (0.0-1.3) x10^3/uL Absolute Nucleated RBC 0.00 (0.00-0.01) x10^3u/L Lymphocytes % 21.0 L (24.0-44.0) % Monocytes % 7.3 (0.0-12.0) % Eosinophils % 2.1 (0.00-5.0) % Basophils % 0.7 (0.0-0.4) % Absolute Granulocytes 5.83 (1.4-6.9) x10^3/uL Basophils # 0.06 (0-0.4) x10^3/uL Sodium 134 L (137-145) mmol/L Potassium 3.8 (3.5-5.1) mmol/L Chloride 99 (98-107) mmol/L Carbon Dioxide 25 (22-30) mmol/L Anion Gap 13.6 (5-15) MEQ/L BUN 16 (7-17) mg/dL Creatinine 0.99 (0.52-1.04) mg/dL Estimated GFR > 60.0 ML/MIN Glucose 126 H (74-106) mg/dL Calcium 9.5 (8.4-10.2) mg/dL Total Bilirubin 0.40 (0.2-1.3) mg/dL AST 26 (14-36) U/L ALT 23 (0-35) U/L Alkaline Phosphatase 102 (38-126) U/L Serum Total Protein 7.5 (6.3-8.2) g/dL Albumin 4.5 (3.5-5.0) g/dL Urinalys Dipstick Clnc Urine Color (YELLOW) Urine Appearance (CLEAR) Urine pH (5-6) Ur Specific [place] (1.005-1.025) POC Urine Protein Conf (Negative) Urine Ketones (NEGATIVE) Urine Nitrite (NEGATIVE) Urine Bilirubin (NEGATIVE) Urine Urobilinogen (0-1) mg/dL Urine Leukocytes (NEGATIVE) Urine WBC (Auto) (0-5) /HPF Urine RBC (Auto) (0-2) /HPF U Epithel Cells (Auto) (FEW) /HPF Urine Bacteria (Auto) (NEGATIVE) /HPF Urine RBC (0-5) Wild/ul Ur Culture Indicated? Urine Glucose (NEGATIVE) mg/dL Urine HCG, Qual (Negative) Salicylates < 1.0 L (2-20) mg/dL Acetaminophen < 10 L (10-30) ug/ml Ethyl Alcohol < 10 (0-10) mg/dL Influenza Type A Ag NEGATIVE (NEGATIVE) Influenza Type B Ag NEGATIVE (NEGATIVE) RSV (PCR) NEGATIVE (Negative) SARS-CoV-2 (PCR) NEGATIVE (NEGATIVE) 12/21/21 12/21/21 Range/Units 17:58 17:58 WBC (4.0-10.5) x10^3/uL RBC (4.1-5.4) x10^6/uL Hgb (12.0-16.0) g/dL Hct (35-47) % MCV (78-100) fL MCH (26-32) pg MCHC (32-36) g/dL RDW (11.5-14.0) % Plt Count (150-450) x10^3/uL MPV (7.5-11.0) fL Gran % (36.0-66.0) % Immature Gran % (Auto) (0.00-0.4) % Nucleat RBC Rel Count (0.00-0.1) % Eos # (Auto) (0-0.5) x10^3/uL Immature Gran # (Auto) (0.00-0.03) x10^3u/L Absolute Lymphs (auto) (1.0-4.6) x10^3/uL Absolute Monos (auto) (0.0-1.3) x10^3/uL Absolute Nucleated RBC (0.00-0.01) x10^3u/L Lymphocytes % (24.0-44.0) % Monocytes % (0.0-12.0) % Eosinophils % (0.00-5.0) % Basophils % (0.0-0.4) % Absolute Granulocytes (1.4-6.9) x10^3/uL Basophils # (0-0.4) x10^3/uL Sodium (137-145) mmol/L Potassium (3.5-5.1) mmol/L Chloride (98-107) mmol/L Carbon Dioxide (22-30) mmol/L Anion Gap (5-15) MEQ/L BUN (7-17) mg/dL Creatinine (0.52-1.04) mg/dL Estimated GFR ML/MIN Glucose (74-106) mg/dL Calcium (8.4-10.2) mg/dL Total Bilirubin (0.2-1.3) mg/dL AST (14-36) U/L ALT (0-35) U/L Alkaline Phosphatase (38-126) U/L Serum Total Protein (6.3-8.2) g/dL Albumin (3.5-5.0) g/dL Urinalys Dipstick Clnc MAIN LAB Urine Color YELLOW (YELLOW) Urine Appearance CLEAR (CLEAR) Urine pH 6.0 (5-6) Ur Specific [place] <=1.005 (1.005-1.025) POC Urine Protein Conf NEGATIVE (Negative) Urine Ketones NEGATIVE (NEGATIVE) Urine Nitrite NEGATIVE (NEGATIVE) Urine Bilirubin NEGATIVE (NEGATIVE) Urine Urobilinogen 0.2 (0-1) mg/dL Urine Leukocytes NEGATIVE (NEGATIVE) Urine WBC (Auto) NONE (0-5) /HPF Urine RBC (Auto) NONE (0-2) /HPF U Epithel Cells (Auto) NONE (FEW) /HPF Urine Bacteria (Auto) NONE (NEGATIVE) /HPF Urine RBC NEGATIVE (0-5) Wild/ul Ur Culture Indicated? NO Urine Glucose NEGATIVE (NEGATIVE) mg/dL Urine HCG, Qual NEGATIVE (Negative) Salicylates (2-20) mg/dL Acetaminophen (10-30) ug/ml Ethyl Alcohol (0-10) mg/dL Influenza Type A Ag (NEGATIVE) Influenza Type B Ag (NEGATIVE) RSV (PCR) (Negative) SARS-CoV-2 (PCR) (NEGATIVE) - Progress Progress: unchanged Progress Note: 12/21/21 19:15 She is medically cleared. Patient would be transferred to [facility] where she has been accepted under care of Dr. Queen. Counseled pt/family regarding: lab results, diagnosis, need for follow-up - Departure Departure Disposition: Transfer Clinical Impression: Psychosis, Delusion, Auditory hallucinations Condition: Stable Critical Care Time: No Referrals: CHANA FLORES DO [Primary Care Provider] - Follow up/PCP as directed
[2021-12-21 19:32] LABS: Amphetamine,Urine NEGATIVE (NEGATIVE); Barbiturate,Urine NEGATIVE (NEGATIVE); Benzodiazepine,Urine NEGATIVE (NEGATIVE); Cocaine,Urine NEGATIVE (NEGATIVE); Methadone,Urine NEGATIVE (NEGATIVE); Opiate,Urine NEGATIVE (NEGATIVE); PCP,Urine NEGATIVE (NEGATIVE); THC,Urine NEGATIVE (NEGATIVE)
[2021-12-21 21:37] VITALS: BP 133/74; PULSE 90; O2SAT 96
== END 2021-12-21 21:35 ==
LOC: ED 17:52
DX: F29 Unspecified psychosis not due to a substance or known physiological condition (principal); F22 Delusional disorders; E78.5 Hyperlipidemia, unspecified; I10 Essential (primary) hypertension; E11.9 Type 2 diabetes mellitus without complications; Z79.899 Other long term (current) drug therapy
CPT/HCPCS: 0241U; 36415; 80053; 80307; 81015; 81025; 85025; 99284; A9270-GY; G0480

== ENCOUNTER 2022-08-05 14:38 | Emergency (ER) | payer MEDICAID ==
--- NOTE | 2022-08-05 14:49 | ERPHSYRPT ---
- History of Present Illness Source: patient Exam Limitations: no limitations Occurred: just prior to arrival Reason for Fall: unknown (Patient states it came on suddenly and she is unable to hold her weight up) Injuries/Pain Location: no injury Loss of Consciousness: no loss of consciousness Severity of Pain-Max: none Severity of Pain-Current: none Associated Symptoms (Fall): trouble walking, other (Patient cannot stand up on her own. This came on suddenly at 2 PM today) Hx Tetanus, Diphtheria Vaccination/Date Given: Yes (up to date) Hx Influenza Vaccination/Date Given: Yes Hx Pneumococcal Vaccination/Date Given: Yes <SILVINO SANCHEZ - Last Filed: 08/05/22 19:03> <BHARATI RAMIREZ - Last Filed: 08/06/22 01:31> - History of Present Illness Time Seen by Provider: 08/05/22 14:49 Physician History: This is a 52-year-old morbidly obese white female with a history of psychosis, panic disorder and ADD. Patient woke up this morning feeling fine and doing well. She states approximately 2:00 her legs became paralyzed and she is unable to move them and cannot walk. The ambulance was contacted and the paramedics arrived. They were able to lift the patient up patient would walk and then sat herself down. She did not fall down. They specifically stated she sat herself down. Patient arrives to the emergency department unable to transfer from the bed to the chair to the cot. We attempted to lift her with her assistance. She is morbidly obese and was not trying to help herself move. We then used a lifting persaud to move her from the floor to the bed. While in bed she is moving all extremities in a normal fashion. She states that her legs are weak but not in pain. She did not suffer any injury to her legs. Patient has a history of hyperlipidemia. This is never happened to her before per her report (SILVINO SANCHEZ) Allergies/Adverse Reactions: Penicillins Allergy (Mild, Verified 08/05/22 14:51) Hives Home Medications: Albuterol 2.5 mg/3 ml Neb [Proventil 2.5 mg/3 ml Neb] 2.5 mg IH QIDPRN PRN 04/23/12 [History] Albuterol Sulfate [Proair Hfa] 8.5 gm IH Q4-6HPRN PRN 04/23/12 [History] Montelukast Sodium 10 mg [Singulair 10 MG] 10 mg PO HS 04/23/12 [History] Atorvastatin Calcium [Lipitor 20MG Tablet] 40 mg PO HS 06/16/16 [History] Benztropine Mesylate [Cogentin] 1 mg PO BID 06/16/16 [History] Losartan Potassium 12.5 mg PO DAILY 06/16/16 [History] Trazodone HCl [Desyrel] 100 mg PO HS 06/16/16 [History] Cetirizine HCl [All Day Allergy Relief] 10 mg PO DAILY 04/21/21 [History] Fluoxetine HCl 20 mg [Prozac 20 MG] 20 mg PO DAILY 04/21/21 [History] Lacosamide [Vimpat] 200 mg PO BID 04/21/21 [History] Lorazepam 1 mg [Ativan 1 MG] 0.5 mg PO DAILY 04/21/21 [History] Lorazepam 1 mg [Ativan 1 MG] 1 mg PO HS 04/21/21 [History] Paliperidone Palmitate [Invega Sustenna] 234 mg IM UD 04/21/21 [History] Propranolol HCl 20 mg PO BID 04/21/21 [History] Trazodone HCl 300 mg PO HS 04/21/21 [History] haloperidoL [Haloperidol] 2 mg PO BID 04/21/21 [History] Travel Risk - International Travel Have you traveled outside of the country in past 3 weeks: No - Coronavirus Screening Are you exhibiting any of the following symptoms?: No Close contact with a COVID-19 positive Pt in past 14-21 Days: No - Vaccine Status Have you recieved a Covid-19 vaccination: Yes [place] Tender: Moderna - Vaccination Dates Date of 2cond Vaccination (if applicable): august 2020 Comment: booster april 2021 <SILVINO SANCHEZ - Last Filed: 08/05/22 19:03> - Review of Systems Constitutional: Weakness (Lateral lower extremities) Eyes: No Symptoms Ears, Nose, & Throat: No Symptoms Respiratory: No Symptoms Cardiac: No Symptoms Abdominal/Gastrointestinal: No Symptoms Genitourinary Symptoms: No Symptoms Musculoskeletal: Other (Unable to stand and hold her weight up with her legs. No injury) Skin: Other (Patient has several excoriation doherty where she has scratched herself and various areas of her body. She is balding and has several scratch doherty that she gave herself on the top of her head) Neurological: Gait Changes Psychological: No Symptoms Endocrine: No Symptoms Hematologic/Lymphatic: No Symptoms Immunological/Allergic: No Symptoms All Other Systems: Reviewed and Negative <SILVINO SANCHEZ - Last Filed: 08/05/22 19:03> - Past Medical History Pertinent Past Medical History: Yes Neurological History: Seizures ENT History: No Pertinent History Cardiac History: High Cholesterol, Hypertension Respiratory History: Asthma Endocrine Medical History: Diabetes Type II Musculoskeletal History: Other GI Medical History: Gallbladder Disease History: No Pertinent History Psycho-Social History: Anxiety, Attention Deficit Disorder, Bipolar, Depression, Panic Disorder Female Reproductive Disorders: No Pertinent History Other Medical History: L carpal tunnel syndrome - Past Surgical History Past Surgical History: Yes Neuro Surgical History: No Pertinent History Cardiac: No Pertinent History Respiratory: No Pertinent History Gastrointestinal: Cholecystectomy Genitourinary: No Pertinent History Musculoskeletal: Orthopedic Surgery Female Surgical History: No Pertinent History Other Surgical History: lap ivonne 2005,benign bone lesion right leg removed - Social History Smoking Status: Never smoker Exposure to second hand smoke: No Drug Use: none Patient Lives Alone: Yes <SILVINO SANCHEZ - Last Filed: 08/05/22 19:03> - [place] Coma Score Best Eye Response ([place]): (4) open spontaneously Best Verbal Response ([place]): (5) oriented Best Motor Response ([place]): (6) obeys commands [place] Total: 15 - Physical Exam General Appearance: no apparent distress, alert, anxiety, obese Head Injury: tenderness (No injury but has several self-induced scratch doherty on her scalp. Patient is balding) Eye Exam: PERRL/EOMI, eyes nml inspection ENT Exam: airway nml, nml ext.inspection, hearing grossly normal Neck Exam: supple, trachea midline, full range of motion, normal alignment, normal inspection Respiratory/Chest Exam: normal breath sounds, No chest tenderness, No res piratory distress, No ecchymosis, No crepitus Cardiovascular Exam: normal heart sounds, regular rate/rhythm Gastrointestinal Exam: soft, normal bowel sounds, No tenderness Rectal Exam: not done Back Exam: normal inspection, normal range of motion, No CVA tenderness, No vertebral tenderness Extremity Exam: normal inspection, normal range of motion (When she is lying down), pelvis stable, No capillary refill <3 sec, No evidence of injury, No motor deficit, No sensory deficit Neurologic Exam: alert, oriented x 3, cooperative, chicken boner II-XII nml as tested, other (Anxious. Unable to assess her ability to walk because she is refusing to do so) Skin Exam: other (Generalized excoriation sites.) SpO2 Interpretation: normal O2 Delivery: Room Air <SILVINO SANCHEZ - Last Filed: 08/05/22 19:03> - Nursing Vital Signs Nursing Vital Signs: Initial Vital Signs Temperature 98.2 F 08/05/22 14:40 Pulse Rate 100 H 08/05/22 14:40 Blood Pressure 127/88 08/05/22 14:40 O2 Sat by Pulse Oximetry 95 08/05/22 14:40 Pain Scale Pain Intensity 0 - Course Nursing assessment & vital signs reviewed: Yes <SILVINO SANCHEZ - Last Filed: 08/05/22 19:03> - Course EKG Interpreted by Me: RATE (110), Sinus Tach, NORMAL AXIS, NORMAL INTERVALS, NORMAL ST-T <BHARATI RAMIREZ - Last Filed: 08/06/22 01:31> Ordered Tests: Active Orders 24 hr Category Date Time Status EKG-ER Only STAT Care 08/05/22 15:12 Active IV Insertion STAT Care 08/05/22 15:12 Active HEAD WITHOUT CONTRAST [CT] Stat Exams 08/05/22 15:46 Completed CBC W DIFF Stat Lab 08/05/22 17:05 Completed CK (IN-HOUSE) [CK-Creatinine Phosphokinase] Stat Lab 08/05/22 18:00 Completed CMP Stat Lab 08/05/22 17:05 Completed CULTURE,URINE Stat Lab 08/05/22 19:21 Received UA W/RFX UR CULTURE Stat Lab 08/05/22 19:21 Completed Urine Triage Profile Stat Lab 08/05/22 19:21 Completed Medication Summary Generic Name Dose Route Start Last Admin Trade Name Freq PRN Reason Stop Dose Admin Haloperidol 2 mg 08/06/22 23:54 08/06/22 00:26 Haloperidol 1 Mg Tablet PO 08/06/22 23:55 2 mg ONCE ONE Administration Sodium Chloride 1,000 mls @ 100 mls/hr 08/05/22 15:15 08/05/22 16:32 Sodium Chloride 0.9% 1000 Ml IV 09/04/22 15:14 100 mls/hr .Q10H MILKA Administration Discontinued Medications Generic Name Dose Route Start Last Admin Trade Name Mike PRN Reason Stop Dose Admin Haloperidol Confirm 08/06/22 00:21 Haloperidol 1 Mg Tablet Administered 08/06/22 00:22 Dose 2 mg .ROUTE .STK-MED ONE Lorazepam 1 mg 08/05/22 23:55 08/06/22 00:26 Lorazepam 1 Mg Tablet PO 08/05/22 23:56 1 mg STAT ONE Administration Lorazepam Confirm 08/06/22 00:16 Lorazepam 1 Mg Tablet Administered 08/06/22 00:17 Dose 1 mg .ROUTE .STK-MED ONE Trazodone HCl 400 mg 08/05/22 23:54 08/06/22 00:26 Trazodone Hcl 150 Mg Tablet PO 08/05/22 23:55 400 mg ONCE ONE Administration Lab/Rad Data: Laboratory Result Diagrams 08/05/22 17:05 08/05/22 17:05 Laboratory Results 08/05/22 08/05/22 08/05/22 Range/Units 19:21 19:21 18:50 WBC (4.0-10.5) x10^3/uL RBC (4.1-5.4) x10^6/uL Hgb (12.0-16.0) g/dL Hct (35-47) % MCV (78-100) fL MCH (26-32) pg MCHC (32-36) g/dL RDW (11.5-14.0) % Plt Count (150-450) x10^3/uL MPV (7.5-11.0) fL Gran % (36.0-66.0) % Immature Gran % (Auto) (0.00-0.4) % Nucleat RBC Rel Count (0.00-0.1) % Eos # (Auto) (0-0.5) x10^3/uL Immature Gran # (Auto) (0.00-0.03) x10^3u/L Absolute Lymphs (auto) (1.0-4.6) x10^3/uL Absolute Monos (auto) (0.0-1.3) x10^3/uL Absolute Nucleated RBC (0.00-0.01) x10^3u/L Lymphocytes % (24.0-44.0) % Monocytes % (0.0-12.0) % Eosinophils % (0.00-5.0) % Basophils % (0.0-0.4) % Absolute Granulocytes (1.4-6.9) x10^3/uL Basophils # (0-0.4) x10^3/uL Sodium (137-145) mmol/L Potassium (3.5-5.1) mmol/L Chloride (98-107) mmol/L Carbon Dioxide (22-30) mmol/L Anion Gap (5-15) MEQ/L BUN (7-17) mg/dL Creatinine (0.52-1.04) mg/dL Estimated GFR ML/MIN Glucose (74-106) mg/dL Calcium (8.4-10.2) mg/dL Total Bilirubin (0.2-1.3) mg/dL AST (14-36) U/L ALT (0-35) U/L Alkaline Phosphatase (38-126) U/L Creatine Kinase (30-135) U/L Serum Total Protein (6.3-8.2) g/dL Albumin (3.5-5.0) g/dL Urine Color Yellow (Yellow) Urine Appearance Clear (Clear) Urine pH 6.0 (4.6-8.0) Ur Specific [place] 1.020 (1.005-1.030) Urine Protein Trace A (Negative) Urine Glucose (UA) Negative (Negative) mg/dL Urine Ketones 15 A (Negative) Urine Blood Negative (Negative) Urine Nitrite Negative (Negative) Urine Bilirubin Negative (Negative) Urine Urobilinogen 0.2 (0.2) mg/dL Ur Leukocyte Esterase Negative (Negative) U Hyaline Cast (Auto) 3-5 A (0-2) /LPF Urine Microscopic RBC 0-2 (0-5) /HPF Urine Microscopic WBC 0-2 (0-5) /HPF Ur Epithelial Cells Rare (None Seen) /HPF Urine Bacteria None Seen (None Seen) /HPF Urine Culture Reflexed ORDERED SEPARATELY (NO) Urine Opiates Level NEGATIVE (NEGATIVE) Ur Methadone NEGATIVE (NEGATIVE) Urine Barbiturates NEGATIVE (NEGATIVE) Ur Phencyclidine (PCP) NEGATIVE (NEGATIVE) Urine Amphetamine NEGATIVE (NEGATIVE) U Benzodiazepine Level NEGATIVE (NEGATIVE) Urine Cocaine NEGATIVE (NEGATIVE) Urine Marijuana (THC) NEGATIVE (NEGATIVE) Influenza Type A Ag NEGATIVE (NEGATIVE) Influenza Type B Ag NEGATIVE (NEGATIVE) RSV (PCR) NEGATIVE (NEGATIVE) SARS-CoV-2 (PCR) NEGATIVE (NEGATIVE) 08/05/22 08/05/22 08/05/22 Range/Units 18:00 17:05 17:05 WBC 10.9 H (4.0-10.5) x10^3/uL RBC 4.69 (4.1-5.4) x10^6/uL Hgb 14.3 (12.0-16.0) g/dL Hct 45.1 (35-47) % MCV 96.2 (78-100) fL MCH 30.5 (26-32) pg MCHC 31.7 L (32-36) g/dL RDW 12.0 (11.5-14.0) % Plt Count 182 (150-450) x10^3/uL MPV 10.1 (7.5-11.0) fL Gran % 85.4 H (36.0-66.0) % Immature Gran % (Auto) 0.3 (0.00-0.4) % Nucleat RBC Rel Count 0.0 (0.00-0.1) % Eos # (Auto) 0.07 (0-0.5) x10^3/uL Immature Gran # (Auto) 0.03 (0.00-0.03) x10^3u/L Absolute Lymphs (auto) 0.70 L (1.0-4.6) x10^3/uL Absolute Monos (auto) 0.75 (0.0-1.3) x10^3/uL Absolute Nucleated RBC 0.00 (0.00-0.01) x10^3u/L Lymphocytes % 6.4 L (24.0-44.0) % Monocytes % 6.9 (0.0-12.0) % Eosinophils % 0.6 (0.00-5.0) % Basophils % 0.4 (0.0-0.4) % Absolute Granulocytes 9.30 H (1.4-6.9) x10^3/uL Basophils # 0.04 (0-0.4) x10^3/uL Sodium 140 (137-145) mmol/L Potassium 3.6 (3.5-5.1) mmol/L Chloride 110 H (98-107) mmol/L Carbon Dioxide 21 L (22-30) mmol/L Anion Gap 13.6 (5-15) MEQ/L BUN 10 (7-17) mg/dL Creatinine 1.12 H (0.52-1.04) mg/dL Estimated GFR 54.7 ML/MIN Glucose 104 (74-106) mg/dL Calcium 9.3 (8.4-10.2) mg/dL Total Bilirubin 0.50 (0.2-1.3) mg/dL AST 23 (14-36) U/L ALT 24 (0-35) U/L Alkaline Phosphatase 113 (38-126) U/L Creatine Kinase 79 (30-135) U/L Serum Total Protein 6.7 (6.3-8.2) g/dL Albumin 4.0 (3.5-5.0) g/dL Urine Color (Yellow) Urine Appearance (Clear) Urine pH (4.6-8.0) Ur Specific [place] (1.005-1.030) Urine Protein (Negative) Urine Glucose (UA) (Negative) mg/dL Urine Ketones (Negative) Urine Blood (Negative) Urine Nitrite (Negative) Urine Bilirubin (Negative) Urine Urobilinogen (0.2) mg/dL Ur Leukocyte Esterase (Negative) U Hyaline Cast (Auto) (0-2) /LPF Urine Microscopic RBC (0-5) /HPF Urine Microscopic WBC (0-5) /HPF Ur Epithelial Cells (None Seen) /HPF Urine Bacteria (None Seen) /HPF Urine Culture Reflexed (NO) Urine Opiates Level (NEGATIVE) Ur Methadone (NEGATIVE) Urine Barbiturates (NEGATIVE) Ur Phencyclidine (PCP) (NEGATIVE) Urine Amphetamine (NEGATIVE) U Benzodiazepine Level (NEGATIVE) Urine Cocaine (NEGATIVE) Urine Marijuana (THC) (NEGATIVE) Influenza Type A Ag (NEGATIVE) Influenza Type B Ag (NEGATIVE) RSV (PCR) (NEGATIVE) SARS-CoV-2 (PCR) (NEGATIVE) - Progress Counseled pt/family regarding: lab results, diagnosis, rad results <SILVINO SANCHEZ Last Filed: 08/05/22 19:03> <BHARATI RAMIREZ - Last Filed: 08/06/22 01:31> - Progress Progress Note: 08/05/22 19:03 Patient transfer of care to Dr. Ramirez at shift change. He will follow-up on remainder of the studies and make final disposition. (SILVINO SANCHEZ) 08/06/22 01:24 Lab evaluation negative, UA negative, EKG wnl Patient continues to put no effort into standing, she crawls around on all fours while on the ground w/out issue, but refuses to stand. I called the patient's caregiver Lida Roberts who states she assists her 2 times per week and this is very common attention seeking behavior for her. I attempted to walk patient again, but she slowly brings herself to the ground and refuses to help stand. Patient is very large and difficulty to move. With her current state we can't safely d/c her to home where she lives alone. We were unable to get patient transferred back to be so patient is now laying on mattress on the ground to help reduce her fall risk. Patient also doesn't have a ride to take her home at this time. I will give her [facility] meds and let her sleep on the mattress on the floor until morning when we will work w/ case management to help the patient get home safely. (BHARATI RAMIREZ) - Departure Critical Care Time: No <SILVINO SANCHEZ - Last Filed: 08/05/22 19:03> <BHARATI RAMIREZ - Last Filed: 08/06/22 01:31> - Departure Clinical Impression: Weakness, Uncooperative behavior Condition: Stable Referrals: CHANA FLORES, [Primary Care Provider] - Follow up/PCP as directed
[2022-08-05] MEDS: Sodium Chloride 0.9% 1000 ML 1,000 ML IV SCH (16:32)
[2022-08-05 17:10] LABS: BASOPHIL % 0.4 % (0.0-0.4); Basophil (Absolute #) 0.04 x10^3/uL (0-0.4); Eosinophil % 0.6 % (0.00-5.0); Eosinophil (Absolute #) 0.07 x10^3/uL (0-0.5); Hematocrit 45.1 % (35-47); Hemoglobin 14.3 g/dL (12.0-16.0); IMMATURE GRAN # 0.03 x10^3u/L (0.00-0.03); IMMATURE GRAN % 0.3 % (0.00-0.4); Lymphocytes % 6.4 % (24.0-44.0); Mean Cell Volume 96.2 fL (78-100); Mean Corpuscular Hemoglobin 30.5 pg (26-32); Mean Corpuscular Hgb Concent. 31.7 g/dL (32-36); Mean Platelet Volume 10.1 fL (7.5-11.0); Monocyte (Absolute #) 0.75 x10^3/uL (0.0-1.3); Monocytes % 6.9 % (0.0-12.0); Neutrophil % 85.4 % (36.0-66.0); Platelet Count 182 x10^3/uL (150-450); Red Blood Count 4.69 x10^6/uL (4.1-5.4); White Blood Count 10.9 x10^3/uL (4.0-10.5)
[2022-08-05 17:20] LABS: ANION GAP 13.6 MEQ/L (5-15); BILIRUBIN,TOTAL 0.5 mg/dL (0.2-1.3); Calcium 9.3 mg/dL (8.4-10.2); Creatinine 1 1.12 mg/dL (0.52-1.04); EST GLOMERULAR FILTRATION RATE 54.7 ML/MIN; Potassium 3.6 mmol/L (3.5-5.1); Total Protein 6.7 g/dL (6.3-8.2)
--- NOTE | 2022-08-05 19:43 | XRAY ---
Indication: Weakness and frequent falls. History of seizures. Multiple contiguous axial images obtained through the head without contrast. Comparison: None Normal appearing brain parenchyma, ventricles, and bony calvarium for patient's age. Visualized paranasal sinuses and mastoid air cells are clear. Impression: Normal CT head without contrast exam. Comment: Preliminary interpretation made by [facility]. No critical discrepancy.
[2022-08-05 19:53] LABS: INFLUENZA A NEGATIVE (NEGATIVE); INFLUENZA B NEGATIVE (NEGATIVE); RESPIRATORY SYNCTIAL VIRUS NEGATIVE (NEGATIVE); SARS-CoV-2 Xpert Express NEGATIVE (NEGATIVE)
[2022-08-05 20:04] LABS: Bacteria None Seen /HPF (None Seen); Bilirubin Negative (Negative); Blood Negative (Negative); Epithelial Cells Rare /HPF (None Seen); Glucose, Urine Negative (Negative); Ketones 15 (Negative); Leukocyte Esterase Negative (Negative); Nitrite Negative (Negative); Protein,Urine Dip Trace (Negative); RBC 0-2 /HPF (0-5); Urobilinogen 0.2 mg/dL (0.2); WBC 0-2 /HPF (0-5)
[2022-08-05 20:05] LABS: ADD URINE CULTURE? ORDERED SEPARATELY (NO); Appearance Clear (Clear)
[2022-08-05 20:15] LABS: Amphetamine,Urine NEGATIVE (NEGATIVE); Barbiturate,Urine NEGATIVE (NEGATIVE); Benzodiazepine,Urine NEGATIVE (NEGATIVE); Cocaine,Urine NEGATIVE (NEGATIVE); Methadone,Urine NEGATIVE (NEGATIVE); Opiate,Urine NEGATIVE (NEGATIVE); PCP,Urine NEGATIVE (NEGATIVE); THC,Urine NEGATIVE (NEGATIVE)
[2022-08-05] MEDS ORDERED: Desyrel 150 MG PO ONE (23:54)
[2022-08-05] MEDS ORDERED: Ativan 1 MG PO ONE (23:55)
[2022-08-06] MEDS ORDERED: Ativan 1 MG ONE ×2 (00:16→20:52)
[2022-08-06] MEDS ORDERED: HALDOL ONE (00:21)
[2022-08-06] MEDS: Sodium Chloride 0.9% 1000 ML 1,000 ML IV SCH ×2 (09:23→11:23)
[2022-08-06] MEDS ORDERED: CLARITIN 10 MG PO ONE (09:26)
[2022-08-06] MEDS ORDERED: Inderal PO ONE ×2 (09:30→20:25)
[2022-08-06] MEDS: VENTOLIN COMMON CANISTER IH PRN ×2 (09:59→17:59)
[2022-08-06] MEDS: Advair Hfa 115/21 Common canister IH SCH ×2 (09:59→17:58)
[2022-08-06] MEDS ORDERED: Cozaar 50 MG PO SCH (10:00)
[2022-08-06] MEDS ORDERED: Prozac 20 MG PO SCH (10:00)
[2022-08-06] MEDS: TOPIRAMATE PO SCH ×2 (10:08→20:54)
[2022-08-06] MEDS ORDERED: LIPITOR 40MG PO STA (20:26)
[2022-08-06] MEDS ORDERED: Desyrel 150 MG PO ONE (20:26)
[2022-08-06] MEDS ORDERED: MOTRIN 600 MG PO ONE (20:26)
[2022-08-06] MEDS ORDERED: HALDOL PO ONE ×2 (20:49→23:54)
[2022-08-06] MEDS ORDERED: Ativan 1 MG PO ONE (20:49)
[2022-08-06] MEDS ORDERED: Haldol 5 MG ONE (20:51)
[2022-08-06] MEDS ORDERED: Haldol 5 MG IV ONE (20:51)
[2022-08-06] MEDS ORDERED: MOTRIN 600 MG ONE (20:51)
[2022-08-06] MEDS ORDERED: LIPITOR 40MG ONE (20:51)
[2022-08-07 08:19] VITALS: BP 134/80; PULSE 78; O2SAT 93
== END 2022-08-07 08:54 ==
LOC: ED 14:38
DX: M62.81 Muscle weakness (generalized) (principal); R46.2 Strange and inexplicable behavior; E78.5 Hyperlipidemia, unspecified; I10 Essential (primary) hypertension; E11.9 Type 2 diabetes mellitus without complications; Z79.899 Other long term (current) drug therapy
CPT/HCPCS: 0241U; 36000; 36415; 70450; 80053; 80307; 81001; 82550; 82947; 85025; 87086; 93005; 94640; 96360; 96361; 96375; 99285; P9612; J1630; A9270-GY

== ENCOUNTER 2022-08-13 17:37 | Emergency (ER) | payer MEDICAID ==
--- NOTE | 2022-08-13 18:04 | ERPHSYRPT ---
- History of Present Illness Time Seen by Provider: 08/13/22 18:02 Source: patient, EMS Exam Limitations: no limitations Physician History: This is a morbidly obese 52-year-old female patient of Dr. Amor who was discharged from inpatient psychiatric facility called [facility]. At that facility she was walking up and down the hallway and up and down stairs. Patient was discharged to home today and taken to her home where she supposedly had an unwitnessed fall but unable to move her legs again. She was brought to the emergency department by paramedics. Patient has a history of COPD, hypertension, hyperlipidemia and multiple psychiatric issues. She was transfe rred to the hospital bed where she is moving her legs freely and has no specific complaints of pain. Patient was in our emergency department for over 40 hours before someone would accept her in transfer. Occurred: just prior to arrival Reason for Fall: unknown (It was unwitnessed) Injuries/Pain Location: pelvis, lower extremity, lower (Back) Loss of Consciousness: no loss of consciousness (Bilateral hips and femurs) Quality: aching Severity of Pain-Max: mild (Mild) Severity of Pain-Current: mild Associated Symptoms (Fall): denies symptoms Allergies/Adverse Reactions: Penicillins Allergy (Mild, Verified 08/13/22 18:06) Hives Home Medications: Albuterol Sulfate [Proair Hfa] 2 puffs IH Q4-6HPRN PRN 04/23/12 [History] Montelukast Sodium 10 mg [Singulair 10 MG] 10 mg PO HS 04/23/12 [History] Atorvastatin Calcium [Lipitor 20MG Tablet] 40 mg PO HS 06/16/16 [History] Losartan Potassium 12.5 mg PO DAILY 06/16/16 [History] Trazodone HCl [Desyrel] 150 mg PO HS 06/16/16 [History] Fluoxetine HCl 20 mg [Prozac 20 MG] 40 mg PO DAILY 04/21/21 [History] Lacosamide [Vimpat] 200 mg PO BID 04/21/21 [History] Paliperidone Palmitate [Invega Sustenna] 234 mg IM UD 04/21/21 [History] Propranolol HCl 20 mg PO BID 04/21/21 [History] Trazodone HCl 300 mg PO HS 04/21/21 [History] Budesonide/Formoterol Fumarate [Budesonide-Formoterol 160-4.5] 2 puffs PO BID 08/06/22 [History] Ibuprofen 600 mg PO BID 08/06/22 [History] Ketoconazole Cream [Nizoral CREAM] See Rx Instructions .ROUTE .COMPLEX 08/06/22 [History] Loratadine 10 mg PO DAILY 08/06/22 [History] Magnesium Oxide 2 tab PO HS 08/06/22 [History] Nystatin See Rx Instructions .ROUTE .COMPLEX 08/06/22 [History] Topiramate 50 mg PO BID 08/06/22 [History] Hx Tetanus, Diphtheria Vaccination/Date Given: Yes (up to date) Hx Influenza Vaccination/Date Given: Yes Hx Pneumococcal Vaccination/Date Given: Yes Travel Risk - International Travel Have you traveled outside of the country in past 3 weeks: No - Coronavirus Screening Are you exhibiting any of the following symptoms?: No Close contact with a COVID-19 positive Pt in past 14-21 Days: No - Vaccine Status Have you recieved a Covid-19 vaccination: Yes Plate Printer: Moderna - Vaccination Dates Date of 2cond Vaccination (if applicable): august 2020 Comment: booster april 2021 - Review of Systems Constitutional: No Symptoms Eyes: No Symptoms Ears, Nose, & Throat: No Symptoms Respiratory: No Symptoms Cardiac: No Symptoms Abdominal/Gastrointestinal: No Symptoms Genitourinary Symptoms: No Symptoms Musculoskeletal: Fall (Unwitnessed), Other (Patient states that she cannot walk or stand) Skin: No Symptoms Neurological: No Symptoms Psychological: Other (Patient unwilling to help herself. Patient unwilling to help others help her) Endocrine: No Symptoms Hematologic/Lymphatic: No Symptoms Immunological/Allergic: No Symptoms All Other Systems: Reviewed and Negative - Past Medical History Pertinent Past Medical History: Yes Neurological History: Seizures ENT History: No Pertinent History Cardiac History: High Cholesterol, Hypertension Respiratory History: Asthma Endocrine Medical History: Diabetes Type II Musculoskeletal History: Other GI Medical History: Gallbladder Disease History: No Pertinent History Psycho-Social History: Anxiety, Attention Deficit Disorder, Bipolar, Depression, Panic Disorder Female Reproductive Disorders: No Pertinent History Other Medical History: L carpal tunnel syndrome - Past Surgical History Past Surgical History: Yes Neuro Surgical History: No Pertinent History Cardiac: No Pertinent History Respiratory: No Pertinent History Gastrointestinal: Cholecystectomy Genitourinary: No Pertinent History Musculoskeletal: Orthopedic Surgery Female Surgical History: No Pertinent History Other Surgical History: nimo ivonne 2005,benign bone lesion right leg removed - Social History Smoking Status: Never smoker Exposure to second hand smoke: No Drug Use: none Patient Lives Alone: Yes - Nursing Vital Signs Nursing Vital Signs: Initial Vital Signs Temperature 98.2 F 08/13/22 17:40 Pulse Rate 93 H 08/13/22 17:40 Blood Pressure 132/87 08/13/22 17:40 O2 Sat by Pulse Oximetry 93 L 08/13/22 17:40 Pain Scale Pain Intensity 4 - [place] Coma Score Best Eye Response ([place]): (4) open spontaneously Best Verbal Response ([place]): (5) oriented Best Motor Response ([place]): (6) obeys commands [place] Total: 15 - Physical Exam General Appearance: no apparent distress, alert, anxiety, obese Head Injury: no evidence of injury Eye Exam: PERRL/EOMI, eyes nml inspection ENT Exam: airway nml, nml ext.inspection Neck Exam: supple, trachea midline, full range of motion, normal alignment, normal inspection Respiratory/Chest Exam: normal breath sounds, No chest tenderness, No respiratory distress, No ecchymosis, No crepitus Gastrointestinal Exam: No tenderness Rectal Exam: not done Back Exam: normal inspection, normal range of motion, No CVA tenderness, No vertebral tenderness Extremity Exam: normal inspection, normal range of motion, capillary refill <3 sec, pelvis stable Neurologic Exam: alert, oriented x 3, cooperative, editor map II-XII nml as tested, normal mood/affect, nml cerebellar function, nml station & gait, sensation nml Skin Exam: normal color, warm, dry SpO2 Interpretation: normal O2 Delivery: Room Air - Course Nursing assessment & vital signs reviewed: Yes Ordered Tests: Active Orders 24 hr Category Date Time Status FEMUR Stat Exams 08/13/22 18:34 Taken FEMUR Stat Exams 08/13/22 18:34 Taken HIPS SHAISTA(2V) INCL PEL IF DONE Stat Exams 08/13/22 18:34 Taken LUMBAR LIMITED (2 OR 3 VIEWS) Stat Exams 08/13/22 18:33 Taken PELVIS (1 OR 2 VIEWS) Stat Exams 08/13/22 18:33 Ordered - Progress Progress: unchanged Progress Note: 08/13/22 19:30 All x-rays performed were interpreted by me. The lumbar x-ray shows no acute fracture or subluxation. Bilateral pelvis and bilateral hips show no acute fracture or dislocation. Left femur x-ray shows no acute fracture or dislocation. Right femur x-ray shows no acute fracture or dislocation. 08/13/22 19:45 This patient's medical issue is 1 of moderate complexity. The level of complexity and the work-up is based on the patient's past medical history, recent past medical work-up which was reviewed by me, review of the patient's stay at [facility], review of the patient's history of present illness, medication list, drug allergy list, and physical findings on examination. The work-up today was performed based on the patient's location of pain complaints. In the last 8 days she has had an extensive work-up and stays in the emergency department (over 40 hours) [facility] Patient does not have an emergency medical issue at this time. [facility] describes her issue is unwillingness to help herself. The patient will be discharged to home and she can follow-up with her primary care physician to make arrangements for outpatient home health, [place] [facility] placement and/or wheelchair acquisition. Counseled pt/family regarding: diagnosis, need for follow-up, rad results Medical Desision Making - Independent Historian Additional History obtained from: Vendor Manager/EMT - Discussion of managment Agreed on:: Treatment plan, need for follow-up - Social Determinants of Health Pt's dx & treatment plan are significantly limited by SDOH: Unemployed, limited education Limited access to: transportation - Diagnostic Testing Diagnostic test were ordered, analyzed, and reviewed by me: Yes Radiological Interpretation: Interpreted by me, Teleradiologist Report - Risk of complications The pt has a mod risk of morbidity or mortality based on: Diagnosis or treatment limited by SDOH - Departure Departure Disposition: Home Clinical Impression: Fall with no significant injury, Uncooperative behavior, Non-compliant behavior Condition: Stable Critical Care Time: No Referrals: CHANA AMOR DO [Primary Care Provider] - Follow up/PCP as directed Additional Instructions: Follow-up with your primary care provider tomorrow, 08/14/2022 for further evaluation and management.
[2022-08-13 20:07] VITALS: BP 149/106; PULSE 94; O2SAT 97
--- NOTE | 2022-08-14 08:39 | XRAY ---
Indication: Pain following fall. Comparison: September 05, 2021 3 view lumbar spine unchanged again demonstrating osteopenia, mild/moderate multilevel degenerative spondylosis, minimal grade 1 anterolisthesis L4 on L5, 1 cm left renal calculus, and cholecystectomy clips. No new/acute findings.
--- NOTE | 2022-08-14 08:41 | XRAY ---
Indication: Pain following fall. Comparison: None AP pelvis and 2 view left/right hip demonstrates osteopenia and pelvic phleboliths. No other bony, articular, or soft tissue abnormalities.
--- NOTE | 2022-08-14 08:41 | XRAY ---
Indication: Pain following fall. Comparison: None 2 view right femur demonstrates osteopenia and mild medial knee joint space narrowing/spurring. No other bony, articular, or soft tissue abnormalities.
--- NOTE | 2022-08-14 08:41 | XRAY ---
Indication: Pain following fall. Comparison: None 2 view left femur demonstrates osteopenia and small suprapatella spurring. No other bony, articular, or soft tissue abnormalities.
== END 2022-08-13 21:51 | disposition home or self-care (01) ==
LOC: ED 17:37
DX: Z04.3 Encounter for examination and observation following other accident (principal); Z91.199 Patient's noncompliance with other medical treatment and regimen due to unspecified reason; M54.50 Low back pain, unspecified; M79.604 Pain in right leg; M79.605 Pain in left leg; I10 Essential (primary) hypertension; E78.5 Hyperlipidemia, unspecified; E11.9 Type 2 diabetes mellitus without complications; Z79.899 Other long term (current) drug therapy; Z56.0 Unemployment, unspecified; Z55.9 Problems related to education and literacy, unspecified; Z59.82 Transportation insecurity
CPT/HCPCS: 72100; 73521; 73552; 99283